=== PATIENT | female | born 1965 ===

== ENCOUNTER 2018-11-26 21:56 | Emergency (ER) | payer SELFPAY ==
[2018-11-26 21:57] VITALS: BMI 52.6
[2018-11-26 22:26] VITALS: O2SAT 96
[2018-11-26] MEDS ORDERED: Sodium Chloride 0.9% 1,000 ML IV STA (23:12)
--- NOTE | 2018-11-26 23:12 | C.PDOC ---
History Of Present Illness 53 year old female presents to ED with complaint of right upper quadrant pain that worsened today. Patient has had previous abdominal discomfort and some blood streaked stool for months. Patient was seen at [facility] on 11/14 and [address] and blood work. There is a questionable polyp. Patient described the pain as sharp, stabbing, and 4/10 in severity. She denies nausea, vomiting, diarrhea, fever, or chills. Time Seen by Provider: 11/26/18 23:12 Chief Complaint (Nursing): Abdominal Pain History Per: Patient History/Exam Limitations: no limitations Onset/Duration Of Symptoms: Intermittent Episodes, Other (months) Current Symptoms Are (Timing): Still Present Severity: Moderate Pain Scale Rating Of: 4 Location Of Pain/Discomfort: RUQ Radiation Of Pain To:: None Quality Of Discomfort: Sharp, Stabbing, "Pain" Associated Symptoms: Other (blood -streaked stool). denies: Fever, Chills, Nausea, Vomiting, Diarrhea Exacerbating Factors: None Alleviating Factors: None Recent travel outside of the [place]: No Past Medical History Reviewed: Historical Data, Nursing Documentation, Vital Signs Vital Signs: Last Vital Signs Temp 98.6 F 11/26/18 22:21 Pulse 72 11/26/18 22:21 Resp 18 11/26/18 22:21 BP 142/85 11/26/18 22:21 Pulse Ox 96 11/26/18 22:21 Primary Care Provider: FAMILY PROVIDER,NO - Medical History PMH: Arthritis, HTN, Hypercholesterolemia Denies: HIV, Chronic Kidney Disease Surgical History: Cholecystectomy - [facility] Procedures RESECTION OF GALLBLADDER, PERCUTANEOUS ENDOSCOPIC APPROACH (02/18/16) Family History: States: Unknown Family Hx - Social History Hx Tobacco Use: No Hx Alcohol Use: No Hx Substance Use: No - Immunization History Hx Tetanus Toxoid Vaccination: Yes Hx Influenza Vaccination: Yes Hx Pneumococcal Vaccination: No Review Of Systems Constitutional: Negative for: Fever, Chills, Weakness Gastrointestinal: Positive for: Abdominal Pain (right upper quadrant), Other (blood-streaked stool). Negative for: Nausea, Vomiting, Diarrhea, Constipation, Melena, Hematemesis Genitourinary: Negative for: Dysuria, Frequency, Hematuria Physical Exam - Physical Exam Appears: Non-toxic, No Acute Distress Skin: Warm, Dry Head: Normacephalic Eye(s): bilateral: Normal Inspection Oral Mucosa: Moist Neck: Trachea Midline, Supple Chest: Symmetrical Cardiovascular: Rhythm Regular, No Murmur Respiratory: No Rales, No Rhonchi, No Wheezing Gastrointestinal/Abdominal: Soft, Tenderness (right upper quadrant), No Distention, No Guarding, No Rebound Extremity: Capillary Refill (<2 seconds) Extremity: Bilateral: Normal Color And Temperature Pulses: Left Dorsalis Pedis: Normal, Right Dorsalis Pedis: Normal Neurological/Psych: Oriented x3 Gait: Steady ED Course And Treatment - Laboratory Results Result Diagrams: 11/26/18 23:35 11/26/18 23:35 O2 Sat by Pulse Oximetry: 96 (in RA) Pulse Ox Interpretation: Normal Progress Note: Type and screen, CMP, lipase, CBC, UA , and B-HCG ordered for patient. Patient given Protonix IVP and IV fluids. Reevaluation Time: 02:24 Reassessment Condition: Improved Medical Decision Making Medical Decision Making: Upon provider reevaluation patient is feeling better, is medically stable, and requires no further treatment in the ED at this time. Patient will be discharged home with Rx for macrobid, anusol . Counseling was provided and all questions were answered regarding diagnosis and need for follow up with the referred clinic. There is agreement to discharge plan. Return if symptoms persist or worsen. Disposition Counseled Patient/Family Regarding: Studies Performed, Diagnosis, Need For Followup, Rx Given - Disposition Referrals: [facility] [Outside] Disposition: HOME/ ROUTINE Disposition Time: 23:12 Condition: FAIR Additional Instructions: Please return if symptoms recur Prescriptions: Hydrocortisone 2.5% (Rectal) [Anusol-HC] 30 applic TX BID #1 tube Nitrofurantoin Macrocrystals [Macrobid] 1 cap PO BID #14 cap Pantoprazole Sodium [Protonix] 40 mg PO DAILY #14 ect Instructions: Urinary Tract Infection, Adult (DC), Acute Abdomen (Belly Pain), Adult (DC) Forms: [employer] (Danish) Print Language: FRENCH - Clinical Impression Clinical Impression: Abdominal pain, UTI (urinary tract infection), Rectal bleeding, External hemorrhoid - Scribe Statement The provider has reviewed the documentation as recorded by the Scribe (Dorina Johnson) All medical record entries made by the Scribe were at my direction and personally dictated by me. I have reviewed the chart and agree that the record accurately reflects my personal performance of the history, physical exam, medical decision making, and the department course for this patient. I have also personally directed, reviewed, and agree with the discharge instructions and disposition.
[2018-11-26 23:44] LABS: BASO % 0.4 % (0.0-2.0); EOS # 0.3 K/uL (0.0-0.7); HEMOGLOBIN 14.1 g/dL (11.0-16.0); LYMPH # 2.8 K/uL (1.0-4.3); LYMPH % 28.7 % (20.0-40.0); MEAN CELL VOLUME 87.2 fL (81.0-99.0); MEAN CORPUSCULAR HEMOGLOBIN 30.4 pg (27.0-31.0); MEAN CORPUSCULAR HGB CONC 34.8 g/dL (33.0-37.0); MEAN PLATELET VOLUME 10.5 fL (7.2-11.7); MONO # 0.6 K/uL (0.0-0.8); MONO % 6.4 % (0.0-10.0); NEUT % 61.5 % (50.0-75.0); RBC 4.63 Mil/uL (3.80-5.20); RED CELL DISTRIBUTION WIDTH 13.4 % (11.5-14.5); WHITE BLOOD COUNT 9.8 K/uL (4.8-10.8)
[2018-11-26 23:54] LABS: ALB/GLOB RATIO 1.4 (1.0-2.1); ALBUMIN 4.3 g/dL (3.5-5.0); ALT/SGPT 39 U/L (9-52); AST/SGOT 24 U/L (14-36); BLOOD UREA NITROGEN 16 mg/dL (7-17); CALCIUM 9.1 mg/dl (8.6-10.4); GFR NON-AFRICAN AMERICAN > 60; LIPASE 216 U/L (23-300)
[2018-11-27 01:01] LABS: HCG,QUALITATIVE URINE NEGATIVE (NEGATIVE); SQUAMOUS EPITHIAL 5 /hpf (0-5); URINE BACTERIA RARE (<OCC); URINE BILIRUBIN NEGATIVE (NEGATIVE); URINE BLOOD NEGATIVE (NEGATIVE); URINE CLARITY Hazy (Clear); URINE COLOR Yellow (YELLOW); URINE GLUCOSE (UA) NORMAL (Normal); URINE LEUKOCYTE ESTERASE 2+ Leu/uL (Negative); URINE PROTEIN NEGATIVE (NEGATIVE)
[2018-11-27 02:45] VITALS: BP 113/74; PULSE 67; RESP 16; TEMP 98
== END 2018-11-27 03:00 | disposition home or self-care (01) ==
LOC: C.ER 21:56
DX: N39.0 Urinary tract infection, site not specified (principal); R10.11 Right upper quadrant pain; K62.5 Hemorrhage of anus and rectum; K64.4 Residual hemorrhoidal skin tags
CPT/HCPCS: 80053; 81001; 83690; 84703; 85025; 86850; 86900; 96361; 96374; 99284; C9113; G0328; J7030